=== PATIENT | female | born 1990 | race African-American/Black ===

== ENCOUNTER 2019-04-09 06:37 | Emergency (ER) | payer OTHER ==
[~2019-04-09] VITALS: Ht 162.6 cm; Wt 50.3 kg
--- NOTE | 2019-04-09 06:40 | NUR ---
PT CAME INTO THE ED C/O DRY COUGH, DECREASED APPETITE, FEVER X 3 DAYS. PT AAOX4, VSS, RR EVEN AND UNLABORED ON RA W/ NAD NOTED. PT CONNECTED TO THE MONITOR AND POX
[2019-04-09] MEDS ORDERED: ACETAMINOPHEN ES 500 MG TABLET ONE (06:58)
[2019-04-09] MEDS ORDERED: ACETAMINOPHEN ES 500 MG TABLET PO ONE (07:00)
--- NOTE | 2019-04-09 07:04 | NUR ---
FLU SWAB SENT TO LAB
--- NOTE | 2019-04-09 07:20 | NUR ---
ASSESSED PT ON BED, AAOX4, NOT IN RESPIRATORY DISTRESS, V/S STABLE, KEPT RESTED AND COMFORTABLE, WILL CONTINUE TO MONITOR.
--- NOTE | 2019-04-09 07:35 | NUR ---
PT IS WHEELED TO RADIOLOGY FOR XRAY.
[2019-04-09] MEDS ORDERED: IV NS 0.9% 1,000 ML BAG IV ONE (08:30)
[2019-04-09 09:37] VITALS: BP 117/64
--- NOTE | 2019-04-09 09:38 | NUR ---
Patient discharged to home in stable condition. Written and verbal after care instructions given. Patient verbalizes understanding of instruction.IV removed. Catheter intact and site benign. Pressure and 4x4 applied to site. No bleeding noted.
== END 2019-04-09 09:38 | disposition home or self-care (01) ==
LOC: ER 06:42
DX: R05 Cough (principal); R53.81 Other malaise; R07.89 Other chest pain
CPT/HCPCS: 71046; 87804 ×2; 99284; J7030